=== PATIENT | male | born 1995 | race Caucasian/White ===

== ENCOUNTER 2024-01-31 15:10 | Outpatient (AMB) | payer OTHER, SELFPAY ==
--- NOTE | 2024-01-31 15:12 | MHC.OFFWIV ---
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 Was hiking around 10:30 this am and rolled outward. Maple suárez of pain and then suárez of warmth Patient Tobacco Use Status: Former Tobacco user Allergies No Known Allergies Allergy (Verified 01/31/24 15:20) Do you need a note to return to daycare/school/sports/work: No HPI HPI Comments History of Present Illness Details he presents to office with ankle pain L ankle Went hiking and felt ankle roll Immediate pain and sat down Maple bettre after a little while but heard a snap/click when it occured Pain level is currently 1/10. Worse with walking 3/10 with movement Elevated without ice or medicine Had surgery in 2016 for talus fx in past PFSH Social History Patient Tobacco Use Status: Former Tobacco user Review of Systems Const Denies chills and Denies fever(s) Card Denies chest pain, Denies syncope and Denies dyspnea Resp Denies dyspnea Musc Reports arthralgias and Reports joint swelling Neuro Denies syncope Physical Exam Vital Signs: Last Vital Signs Pulse 97 01/31/24 15:17 BP 118/70 01/31/24 15:17 Pulse Ox 98 01/31/24 15:17 Oxygen Delivery Method Room Air 01/31/24 15:17 BMI result Body Mass Index 25.5 General: Non-toxic, NAD. Speaking full sentences. Skin: Warm dry throughout + edema LLE near lateral malleoli. No erythema but slight blue ecchymosis in that region Eye: EOMI Respiratory: No respiratory distress Cardiac: RRR. No murmur. DP pulse intact. No calf tenderness or pedal edema MSK: No proximal tib/fib tenderness to palpation LLE +tenderness to palpation L lateral malleoli as well as areas anterior and inferior to L lateral malleoli No metatarsal bone or digit tenderness to palpation Minimal LLE media malleoli tenderness to palpation No plantar or calcaneus tenderness Neurology: A/O. No aphasia or facial droop. Gait without abnormality Psych: Good mood and affect Assessment & Plan Assessment & Plan (1) Ankle sprain: Code(s): S93.409A - Sprain of unspecified ligament of unspecified ankle, initial encounter Qualifiers: Encounter type: initial encounter Involved ligament of ankle: other ligament Laterality: left Qualified Code(s): S93.492A - Sprain of other ligament of left ankle, initial encounter Plan: Patient seen and evaluated. Xray L ankle reviewed by myself without fx noted Pt declined air cast or stirrup or JUSTINE Rest ice, elevate FU with PCP if needed Patient gave verbal understanding and had no additional questions or concerns at time of discharge All questions answered Orders: Orders XR ankle LT min 3V Today S93.409A - Sprain of unspecified ligament of unspecified ankle, initial encounter Coding Level of Care Code Est Pt Level 3 (07703) Diagnoses Sprain of other ligament of left ankle, initial encounter S93.492A Encounter type: initial encounter Involved ligament of ankle: other ligament Laterality: left
[2024-01-31 15:17] VITALS: BP 118/70; PULSE 97; O2SAT 98; BMI 25.5
== END 2024-01-31 16:43 | disposition home or self-care (01) ==
PROVIDERS: PCP Internal Medicine; Visit Provider Physician Assistant
DX: S93.492A Sprain of other ligament of left ankle, initial encounter (principal)
CPT/HCPCS: 99213

== ENCOUNTER 2024-01-31 15:26 | Outpatient (REF) | payer OTHER, SELFPAY ==
--- NOTE | ~2024-01-31 | XR_ITS ---
EXAMINATION: XR ANKLE, LEFT CLINICAL INFORMATION: Sprain of ankle. COMPARISON: None available. TECHNIQUE: AP, lateral, and mortise views of the left ankle. FINDINGS: No fracture. Alignment is anatomic. No erosions. Joint spaces are maintained. Soft tissues are normal. XR/XR ankle LT min 3V IMPRESSION: Normal left ankle.
== END 2024-01-31 15:27 | disposition home or self-care (01) ==
LOC: HO.HMGCX 15:26
PROVIDERS: Visit Provider Physician Assistant
DX: S93.402D Sprain of unspecified ligament of left ankle, subsequent encounter (principal)
CPT/HCPCS: 73610

== ENCOUNTER 2024-04-18 10:07 | Outpatient (AMB) | payer OTHER, SELFPAY ==
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
[2024-04-18 11:09] VITALS: BP 112/80; PULSE 56; TEMP 36.6; O2SAT 98; BMI 25.7
== END 2024-04-18 12:15 | disposition home or self-care (01) ==
PROVIDERS: PCP Internal Medicine; Visit Provider Family Medicine
DX: S13.9XXA Sprain of joints and ligaments of unspecified parts of neck, initial encounter (principal); S33.5XXA Sprain of ligaments of lumbar spine, initial encounter; S06.0XAA Concussion with loss of consciousness status unknown, initial encounter
CPT/HCPCS: 99051; 99213

== ENCOUNTER 2024-09-09 08:11 | Outpatient (AMB) | payer OTHER, SELFPAY ==
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
[2024-09-09 08:49] VITALS: BP 122/74; PULSE 79; O2SAT 98; BMI 26.4
== END 2024-09-09 09:50 | disposition home or self-care (01) ==
PROVIDERS: PCP Internal Medicine; Visit Provider Physician Assistant
DX: S91.339A Puncture wound without foreign body, unspecified foot, initial encounter (principal); S91.332A Puncture wound without foreign body, left foot, initial encounter

== ENCOUNTER → 2024-09-09 08:11 | Outpatient (BNVA) | payer SELFPAY | PROVIDERS: PCP Internal Medicine; Visit Provider Physician Assistant | DX: S91.332A Puncture wound without foreign body, left foot, initial encounter (principal); W45.0XXA Nail entering through skin, initial encounter; Y93.9 Activity, unspecified; Y92.9 Unspecified place or not applicable; Y99.9 Unspecified external cause status | CPT/HCPCS: 90471; 90715 ==